=== PATIENT | female | born 1990 | race Asian ===

== ENCOUNTER 2017-09-14 22:46 | Emergency (ER) | payer BC, OTHER ==
[~2017-09-14] VITALS: Ht 149.9 cm; Wt 55.8 kg
--- NOTE | 2017-09-14 23:00 | NUR ---
DR ASCENCION HARMON MD AT BEDSIDE FOR MSE.
--- NOTE | 2017-09-15 00:10 | NUR ---
Patient discharged to home in stable conditon. Written and verbal after care instructions given. Patient verbalizes understanding of instructions.
[2017-09-15 00:32] VITALS: BP 122/80
== END 2017-09-15 00:33 | disposition home or self-care (01) ==
LOC: ER 22:54
DX: B34.9 Viral infection, unspecified (principal)
CPT/HCPCS: 36415; 86403; 87070; 87400; A4663